=== PATIENT | female | born 1990 | race Caucasian/White ===

== ENCOUNTER 2018-06-05 19:38 | Emergency (ER) | payer SELFPAY ==
[2018-06-05 19:55] VITALS: BP 140/89
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
== END 2018-06-05 20:45 | disposition home or self-care (01) ==
LOC: MW.ED 19:38
DX: S09.90XA Unspecified injury of head, initial encounter (principal); S00.83XA Contusion of other part of head, initial encounter; S00.12XA Contusion of left eyelid and periocular area, initial encounter; S00.11XA Contusion of right eyelid and periocular area, initial encounter; Y04.2XXA Assault by strike against or bumped into by another person, initial encounter
CPT/HCPCS: 70450; 70450-26; 70486; 70486-26; 99284-25